=== PATIENT | male | born 1975 | race Caucasian/White ===

== ENCOUNTER 2019-05-16 16:01 | Outpatient (REF) | payer SELFPAY ==
[2019-05-16 13:11] LABS: HCT 48.1 % (40.0-50.0); HGB 16.2 g/dL (13.5-17.5)
[2019-05-16 13:24] LABS: ALT 79 U/L (16-63); AST 28 U/L (15-37); Albumin 4.4 g/dL (3.4-5.0); Alkaline Phosphatase 91 U/L (46-116); Anion Gap 12.2 mmol/L (3-11); BUN 21 mg/dL (7-18); Bilirubin, Total 0.3 mg/dL (0.2-1.0); CO2 23.8 mmol/L (21.0-32.0); CREATININE 1.07 mg/dL (0.70-1.30); Calcium 9.5 mg/dL (8.5-10.1); Calculated LDL 174 mg/dL; Chloride 107 mmol/L (98-107); Cholesterol 268 mg/dL (50-200); Glucose 129 mg/dL (70-100); HDL Cholesterol 37 mg/dL (40-60); Potassium 4.6 mmol/L (3.5-5.1); Sodium 143 mmol/L (136-145); Total Protein 7.5 g/dL (6.4-8.2); Triglyceride 287 mg/dL (30-150)
== END 2019-05-16 16:21 ==
LOC: NCHCN 16:01
PROVIDERS: PCP Specialist/Technologist Athletic Trainer; Visit Provider Specialist/Technologist Athletic Trainer
DX: K62.5 Hemorrhage of anus and rectum (principal); Z00.00 Encounter for general adult medical examination without abnormal findings; Z13.220 Encounter for screening for lipoid disorders
CPT/HCPCS: 80053; 80061; 85014; 85018

== ENCOUNTER 2019-09-23 11:21 | Outpatient (CLI) | payer OTHER, SELFPAY ==
[2019-09-25 14:08] LABS: SARS-CoV-2 RNA Undetected (Undetected); SARS-CoV-2 Specimen Source Nasopharynx
== END 2019-09-23 11:41 ==
PROVIDERS: PCP Specialist/Technologist Athletic Trainer; Visit Provider Specialist/Technologist Athletic Trainer
DX: Z20.828 Contact with and (suspected) exposure to other viral communicable diseases (principal); Z11.59 Encounter for screening for other viral diseases; B34.9 Viral infection, unspecified
CPT/HCPCS: 87449; U0003

== ENCOUNTER 2020-09-28 10:22 | Outpatient (REF) | payer OTHER, SELFPAY ==
[2020-09-28 13:52] LABS: ALT 67 U/L (16-63); AST 27 U/L (15-37); Anion Gap 8.4 mmol/L (3-11); BUN 22 mg/dL (7-18); CO2 25.6 mmol/L (21.0-32.0); Calcium 9.5 mg/dL (8.5-10.1); Calculated LDL 167 mg/dL (<100); Chloride 106 mmol/L (98-107); Cholesterol 264 mg/dL (<200); Glucose 132 mg/dL (74-106); HDL Cholesterol 43 mg/dL (40-60); Potassium 4.2 mmol/L (3.5-5.1); Sodium 140 mmol/L (136-145); Triglyceride 271 mg/dL (<150)
== END 2020-09-28 10:23 | disposition home or self-care (01) ==
LOC: NCHCN 10:22
PROVIDERS: PCP Nurse Practitioner Family; Visit Provider Nurse Practitioner Family
DX: Z00.00 Encounter for general adult medical examination without abnormal findings (principal); E78.5 Hyperlipidemia, unspecified; R73.03 Prediabetes
CPT/HCPCS: 80048; 80061; 84450; 84460

== ENCOUNTER 2021-01-26 10:30 | Emergency (ER) | payer OTHER, SELFPAY ==
[2021-01-26 10:35] VITALS: BP 157/92; PULSE 101; RESP 18; TEMP 36.5; O2SAT 95
[2021-01-26 10:40] VITALS: RESP 18
--- NOTE | 2021-01-26 11:00 | DI.RAD_ITS ---
Exam(s) XR SOFT TISSUE NECK EXAM: XR SOFT TISSUE NECK CLINICAL HISTORY: neck pain, r/o acute process TECHNIQUE: COMPARISON: No exams were available for comparison FINDINGS: Two views were obtained. There is a mild torticollis to the right. There is disc space narrowing an d prominent anterior osteophytes at C6-7 level. No prevertebral soft tissue swelling seen. Unremark able appearance of the tracheal laryngeal air shadow. IMPRESSION: Negative soft tissue examination of the neck. RADIATION DOSE DELIVERED: Total DLP
--- NOTE | 2021-01-26 11:00 | DI.RAD_ITS ---
Exam(s) XR CHEST 2V PA LATERAL EXAM: XR CHEST 2V PA LATERAL CLINICAL HISTORY: cough, chest congestion, r/o acute disease TECHNIQUE: 2D digital imaging was performed. COMPARISON: No exams were available for comparison FINDINGS: The heart is not enlarged. The lungs are clear and well expanded. No pleural effusion seen. Mediastin al contours appear intact. IMPRESSION: Normal chest. RADIATION DOSE DELIVERED: Total DLP
--- NOTE | 2021-01-26 11:11 | W.ED.GENAD ---
Discharge Plan Disposition Patient Disposition: HOME Condition: Improving Discharge Details Clinical Impression: Acute cervical myofascial strain, Hiccups, Cough Primary Care Provider: Yudith Elkins ED Provider: Zeynep Majano Home Meds and New Rx's Prescriptions: New methocarbamol 500 mg tablet 500 mg PO Q6H PRN (Reason: muscle spasm) Qty: 14 RF: 0 Continued lisinopril 10 mg Tablet 10 mg PO DAILY RF: 0 Discharge Instructions Instructions: Cervical Strain (ED), Acute Cough (ED) Additional Instructions: Alternate ice and heat to the affected area(s) several times daily for 20 minutes at a time. Alternate tylenol and motrin as needed and directed for pain. Take the methocarbamol muscle relaxer as needed and directed for pain. Follow-up with your primary care doctor in 1 week. Follow-up with general surgery for reevaluation and for consideration of upper endoscopy if your hiccups persist or worsen. Return to the emergency department with any worsening or new concerning symptoms. Referrals: Nadine San DO [OSTEOPATHIC DOCTOR] - Discharge Data Discharge Physician: Zeynep Majano Medical Decision Making 45-year-old male presents with neck pain since this morning that is worse with head movement, 2 episodes of coughing up yellow and brown sputum this morning and hiccups all day yesterday. Vitals within normal limits. Patient appears comfortable and nontoxic. His neck pain is tender to palpation paraspinal and is reproducible with head movement so this appears musculoskeletal. He has no report of fever, sore throat with normal ENT exam and no meningeal signs so history and presentation does not appear consistent with meningitis or strep pharyngitis. He also denies any shortness of breath, persistent cough or chest pain and has normal vital signs and history and presentation does not appear consistent with pneumonia. Will obtain screening labs, neck and chest x-ray due to his complaint of hiccups all day yesterday however I am not concerned of an acute infectious or obvious neoplastic process without report of weight loss or recent illness. Patient drove himself to the ED and would prefer to drive home. Will place an IV, give a dose of Toradol, Decadron IV and fluids and reassess. Labs reviewed. White blood cell count 12. Normal electrolytes. Soft tissue neck x-ray and chest x-ray negative for acute findings. Pt reassessed and he feels much better and feels good to go home. We will send with a prescription for muscle relaxers. Advised to alternate ice and heat and take NSAIDs. Will give surgery follow-up information if needed if hiccups return and persist for evaluation and consideration for upper endoscopy. Usual and customary return precautions given prior to discharge. Medical Records Medical records reviewed: Yes I reviewed the patient's medical records. Imaging Data Radiologic Study: Radiologist's impression: XR Soft Tissue Neck Exam date and time: 01/26/2021 11:09 AM Age: 45 years old Clinical indication: Patient HX: Neck pain, R/O acute process, hiccups, sore throat TECHNIQUE: Imaging protocol: XR of the soft tissues of the neck. COMPARISON: No relevant prior studies available. FINDINGS: Airway: No significant airway narrowing is identified. Soft tissues: Prevertebral soft tissues are unremarkable. Bones/joints: There is straightening, mild reversal of the cervical lordosis. There are findings consistent with cervical spondylosis, degenerative disc disease most prominent at C6-C7. No acute bony abnormality is identified by plain film exam. Other findings: Lung apices are clear IMPRESSION: No acute findings by plain film exam XR Chest Exam date and time: 01/26/2021 11:09 AM Age: 45 years old Clinical indication: Patient HX: Cough, chest congestion, R/O acute disease, TECHNIQUE: Imaging protocol: XR of the chest. Views: 2 views. COMPARISON: No relevant prior studies available. FINDINGS: Lungs: Unremarkable. No consolidation. Pleural spaces: Unremarkable. No pleural effusion. No pneumothorax. Heart/Mediastinum: Unremarkable. No cardiomegaly. Bones/joints: Unremarkable. IMPRESSION: No acute findings. Lab Data Lab results reviewed: Yes I reviewed the patient's lab results. Labs: 01/26/21 11:16 Sputum Sputum Culture - Pending 01/26/21 11:16 Sputum Gram Stain - Final Laboratory Tests Range/Units 01/26/21 01/26/21 11:20 11:20 WBC (4.4-10.8) 10^3/uL 12.70 H RBC (4.36-5.78) 10^6/uL 5.11 Hgb (13.5-17.5) g/dL 15.8 Hct (40.0-50.0) % 46.8 MCV (80-95) fL 91.6 MCH (27.0-33.0) pg 30.9 MCHC (32.0-36.0) % 33.8 RDW (11.8-14.1) % 12.0 Plt Count (130-400) 10^3/uL 215 MPV (8.0-11.0) fL 10.0 Immature Gran % 0.3 Neutrophils % 77.8 Lymphocytes % 12.6 Monocytes % 8.3 Eosinophils % 0.5 Basophils % 0.5 Nucleated RBC % % 0 Absolute Neutrophils (1.2-6.7) 10^3/uL 9.88 H Absolute Lymphocytes (1.2-3.4) 10^3/uL 1.60 Absolute Monocytes (0.1-0.8) 10^3/uL 1.05 H Absolute Eosinophils (0.0-0.7) 10^3/uL 0.06 Absolute Basophils (0.0-0.2) 10^3/uL 0.06 Sodium (136-145) mmol/L 141 Potassium (3.5-5.1) mmol/L 4.1 Chloride (98-107) mmol/L 104 Carbon Dioxide (21.0-32.0) mmol/L 26.1 Anion Gap (3-11) mmol/L 10.9 BUN (7-18) mg/dL 16 Creatinine (0.70-1.30) mg/dL 0.9 Estimated GFR/1.73 m2 (mL/min/1.73m2) >= 60.00 Glucose (74-106) mg/dL 139 H Calcium (8.5-10.1) mg/dL 9.0 Total Bilirubin (0.2-1.0) mg/dL 0.5 AST (15-37) U/L 34 ALT (16-63) U/L 83 H Alkaline Phosphatase (46-116) U/L 79 Total Protein (6.4-8.2) g/dL 7.6 Albumin (3.4-5.0) g/dL 4.2 Lipase (73-393) U/L 67 HPI General Mode of arrival: ambulatory. Date/Time Provider Initiated Documentation: 01/26/21 10:41. Limitations to Documentation: no limitations. Information obtained by: patient. HPI Narrative: Patient is a 45-year-old male who presents to the ED with a complaint of hiccups all day yesterday with 2 episodes of coughing up yellow and brown sputum this morning and diffuse neck pain that is worse with head movement today. Patient states his main complaint now is neck pain. Patient has not taken any medication for pain. He states the neck pain is worse with movement of his head. He denies any pain within his throat or sore throat or pain with swallowing. Patient states since waking up yesterday morning he had the hiccups all throughout the day. He states that he went to sleep for a few hours and awoke at 3 AM with needing to cough up a large amount of yellow and brown sputum. He states he was able to sleep for a few hours and then awoke and coughed up another large amount of yellow-brown sputum. He states since getting out of bed this morning he noted neck pain. He states he did have the hiccups again this morning after awakening but states this is now improved. He denies any fever, persistent cough at this time, shortness of breath, abdominal pain, vomiting, diarrhea, recent weight loss, new medications, recent alcohol or new food. Related Data Home Medications Medication Instructions Recorded Confirmed lisinopril 10 mg PO DAILY 01/26/21 01/26/21 methocarbamol 500 mg PO Q6H PRN #14 tab 01/26/21 Previous Rx's Medication Instructions Recorded methocarbamol 500 mg PO Q6H PRN #14 tab 01/26/21 Allergies Allergy/AdvReac Type Severity Reaction Status Date / Time shrimp Allergy Severe Anaphylaxis Unverified 01/26/21 10:38 General Stated Complaint: GenMedical MAHI: 3 Review of Systems All systems reviewed & are unremarkable except as noted in HPI and below Constitutional Constitutional: Reports as per HPI, Denies chills and Denies fever(s) Eyes Eyes: Denies blurry vision ENT Ears, Nose, Mouth, and Throat: Denies dizziness, Reports neck pain, Denies sore throat and Denies throat swelling Cardiovascular Cardiovascular: Denies chest pain and Denies dyspnea Respiratory Respiratory: Reports cough and Denies dyspnea Gastrointestinal Gastrointestinal: Denies abdominal pain, Denies diarrhea and Denies vomiting Genitourinary Genitourinary: Denies hematuria and Denies dysuria Musculoskeletal Musculoskeletal: Denies back pain, Reports neck pain and Denies numbness Integumentary/Breasts Skin/Breast: Denies lesions and Denies rash Neurologic Neurologic: Denies dizziness, Denies localized weakness and Denies numbness Allergic/Immunologic Allergic/Immunologic: Denies throat swelling [facility] Medical History (Updated 01/26/21 @ 13:17 by Zeynep Majano DO) HTN (hypertension) Surgical History (Updated 01/26/21 @ 11:13 by Zeynep Majano DO) History of lumbar fusion Social History Smoking/Tobacco Use Status: Never Smoking risk assessment performed?: Yes Alcohol Intake: current Alcohol Intake frequency: 3 or more drinks per day Drug use: Never Substance use type: does not use Do you feel safe at home: Yes Do you feel safe in your relationship?: Yes Exam Const General: cooperative and no acute distress HENMT Head: normal to inspection Ears: hearing grossly normal bilaterally, external ears normal and TM's normal bilaterally Face and sinus: normal facial exam Mouth: oral mucosae normal Throat: posterior oropharynx normal Eyes General: appearance normal, both eyes and all related structures EOM: EOM intact bilaterally Neck Neck: normal visual inspection, no meningeal signs, trachea midline, supple, no anterior neck swelling, no tracheal deviation and No submandibular swelling Lymphatic: no lymphadenopathy noted Chest Chest: normal inspection of the chest and no tenderness Resp Effort & Inspection: normal respiratory effort and able to speak in complete sentences Auscultation: clear to auscultation bilaterally Cardio Rate: regular rate Rhythm: regular rhythm GI Inspection: normal to inspection Palpation: soft, not firm, not rigid and nontender Auscultation: normal bowel sounds Back/Spine/Pelvis Cervical Spine: cervical muscular tenderness and pain with cervical ROM (most with L and R head rotation) Skin General skin exam: no rashes or lesions noted Neuro General: patient alert, patient awake and patient oriented x3 Cognition: normal cognition Speech: speech normal Motor: muscle tone normal throughout and strength 5/5 throughout Sensory Exam: no sensory deficits noted Extrem General: normal to inspection, full ROM, capillary refill normal, no calf tenderness bilaterally and no edema Other: Bilateral radial and ulnar pulses intact. Psych Appearance: grossly normal Mental Status: mental status grossly normal Speech and Movement: speech and movement normal Affect: normal affect Course Vital Signs Vital signs: Vital Signs Temperature 97.7 F 01/26/21 10:35 Pulse 101 H 01/26/21 10:35 Respiratory Rate 18 01/26/21 10:35 Blood Pressure 157/92 H 01/26/21 10:35 Pulse Oximetry 95 01/26/21 10:35 Temperature 97.7 F 01/26/21 10:35 Temperature Source Temporal Artery Scan 01/26/21 10:35 Pulse 101 H 01/26/21 10:35 Respiratory Rate 18 01/26/21 10:40 Respiratory Effort Non-Labored 01/26/21 10:40 Respiratory Depth Normal 01/26/21 10:40 Respiratory Pattern Normal 01/26/21 10:40 Blood Pressure 157/92 H 01/26/21 10:35 Blood Pressure Position Sitting 01/26/21 10:35 Pulse Oximetry 95 01/26/21 10:35 Oxygen Delivery Method Room Air 01/26/21 10:35 Oxygen Flow Rate 0 01/26/21 10:35 Pain Level 9 01/26/21 10:35
[2021-01-26 11:25] LABS: Abs Immature Grans 0.04 10^3/uL (0.0-0.06); Absolute Basophil Count 0.06 10^3/uL (0.0-0.2); Absolute Eosinophil Count 0.06 10^3/uL (0.0-0.7); Absolute Monocyte Count 1.05 10^3/uL (0.1-0.8); Basophils % 0.5; Eosinophils % 0.5; HCT 46.8 % (40.0-50.0); HGB 15.8 g/dL (13.5-17.5); Immature Grans % 0.3; Lymphocytes % 12.6; MCH 30.9 pg (27.0-33.0); MCHC 33.8 % (32.0-36.0); MCV 91.6 fL (80-95); Monocytes % 8.3; Neutrophils % 77.8; Nucleated RBC 0 %; Platelet Count 215 10^3/uL (130-400); RBC 5.11 10^6/uL (4.36-5.78); RDW-SD 40.8 fL
[2021-01-26 11:27] LABS: Absolute Neutrophil Count 9.88 10^3/uL (1.2-6.7)
[2021-01-26 11:39] LABS: ALT 83 U/L (16-63); AST 34 U/L (15-37); Albumin 4.2 g/dL (3.4-5.0); Alkaline Phosphatase 79 U/L (46-116); Anion Gap 10.9 mmol/L (3-11); BUN 16 mg/dL (7-18); Bilirubin, Total 0.5 mg/dL (0.2-1.0); CO2 26.1 mmol/L (21.0-32.0); CREATININE 0.9 mg/dL (0.70-1.30); Chloride 104 mmol/L (98-107); Glucose 139 mg/dL (74-106); Lipase 67 U/L (73-393); Potassium 4.1 mmol/L (3.5-5.1); Sodium 141 mmol/L (136-145); Total Protein 7.6 g/dL (6.4-8.2)
[2021-01-26] MEDS: Normal Saline 1,000 ML 1000 ML IV (11:42)
[2021-01-26] MEDS: Ketorolac 30 MG/ML VIAL IVP (11:43)
[2021-01-26] MEDS: Dexamethasone 10 MG/ML VIAL IVP (11:43)
[2021-01-26 11:46] VITALS: BP 134/77; PULSE 87; RESP 18; O2SAT 95
--- NOTE | 2021-01-26 13:03 | DI.VRAD_ITS ---
PROCEDURE INFORMATION: Exam: XR Chest Exam date and time: 01/26/2021 11:09 AM Age: 45 years old Clinical indication: Patient HX: Cough, chest congestion, R/O acute disease, TECHNIQUE: Imaging protocol: XR of the chest. Views: 2 views. COMPARISON: No relevant prior studies available. FINDINGS: Lungs: Unremarkable. No consolidation. Pleural spaces: Unremarkable. No pleural effusion. No pneumothorax. Heart/Mediastinum: Unremarkable. No cardiomegaly. Bones/joints: Unremarkable. IMPRESSION: No acute findings. Dictated and Authenticated by: Denise Cardenas MD. Ordering:TOPHER Adhikari MD
--- NOTE | 2021-01-26 13:05 | DI.VRAD_ITS ---
PROCEDURE INFORMATION: Exam: XR Soft Tissue Neck Exam date and time: 01/26/2021 11:09 AM Age: 45 years old Clinical indication: Patient HX: Neck pain, R/O acute process, hiccups, sore throat TECHNIQUE: Imaging protocol: XR of the soft tissues of the neck. COMPARISON: No relevant prior studies available. FINDINGS: Airway: No significant airway narrowing is identified. Soft tissues: Prevertebral soft tissues are unremarkable. Bones/joints: There is straightening, mild reversal of the cervical lordosis. There are findings consistent with cervical spondylosis, degenerative disc disease most prominent at C6-C7. No acute bony abnormality is identified by plain film exam. Other findings: Lung apices are clear IMPRESSION: No acute findings by plain film exam Dictated and Authenticated by: Denise Cardenas MD. Ordering:TOPHER Adhikari MD
[2021-01-26 13:51] VITALS: BP 140/72; PULSE 80; RESP 18; TEMP 36.7; O2SAT 95
== END 2021-01-26 14:13 | disposition home or self-care (01) ==
PROVIDERS: Emergency Provider Physician Assistant; PCP Nurse Practitioner Family
DX: S16.1XXA Strain of muscle, fascia and tendon at neck level, initial encounter (principal); X58.XXXA Exposure to other specified factors, initial encounter; R06.6 Hiccough; R05 Cough
CPT/HCPCS: 36415; 80053; 83690; 96361; 96374; 96375; 99284; 70360; 71046; 85025; 87070; 87205; 99285; J1100; J1885

== ENCOUNTER 2023-03-06 21:21 | Outpatient (REF) | payer OTHER, SELFPAY ==
[2023-03-06 21:43] LABS: HCT 46.5 % (40.0-50.0); HGB 15.6 g/dL (13.5-17.5); MCH 30.8 pg (27.0-33.0); MCHC 33.5 % (32.0-36.0); MCV 92 fL (80-95); MPV 10.5 fL (8.0-11.0); Platelet Count 280 10^3/uL (130-400); RBC 5.07 10^6/uL (4.36-5.78); RDW 12.1 % (11.8-14.1); WBC 8.13 10^3/uL (4.4-10.8)
[2023-03-06 22:03] LABS: ALT 39 U/L (16-63); AST 14 U/L (15-37); Albumin 4.2 g/dL (3.4-5.0); Alkaline Phosphatase 89 U/L (46-116); Anion Gap 11.1 mmol/L (3-11); BUN 22 mg/dL (7-18); Bilirubin, Total 0.4 mg/dL (0.2-1.0); CO2 25.9 mmol/L (21.0-32.0); Calcium 9.4 mg/dL (8.5-10.1); Chloride 103 mmol/L (98-107); Glucose 212 mg/dL (74-106); Potassium 4.1 mmol/L (3.5-5.1); Sodium 140 mmol/L (136-145); Total Protein 7.6 g/dL (6.4-8.2)
== END 2023-03-06 21:22 | disposition home or self-care (01) ==
LOC: NCHCN 21:21
PROVIDERS: PCP Nurse Practitioner Family; Visit Provider Nurse Practitioner Family
DX: Z00.00 Encounter for general adult medical examination without abnormal findings (principal)
CPT/HCPCS: 80053; 85027

== ENCOUNTER 2023-06-12 20:12 | Outpatient (REF) | payer OTHER, SELFPAY ==
[2023-06-12 14:48] LABS: Calculated LDL 161 mg/dL (<100); Cholesterol 254 mg/dL (<200); HDL Cholesterol 47 mg/dL (40-60); Triglyceride 231 mg/dL (<150)
== END 2023-06-12 20:13 | disposition home or self-care (01) ==
LOC: NCHCN 20:12
PROVIDERS: PCP Nurse Practitioner Family; Visit Provider Nurse Practitioner Family
DX: E78.5 Hyperlipidemia, unspecified (principal)
CPT/HCPCS: 80061

== ENCOUNTER 2024-04-22 22:53 | Outpatient (REF) | payer SELFPAY ==
[2024-04-22 16:07] LABS: ALT 41 U/L (16-63); AST 17 U/L (15-37); Albumin 4.2 g/dL (3.4-5.0); Alkaline Phosphatase 91 U/L (46-116); Anion Gap 11.3 mmol/L (3-11); BUN 19 mg/dL (7-18); Bilirubin, Total 0.43 mg/dL (0.2-1.0); CO2 25.7 mmol/L (21.0-32.0); Calcium 9.4 mg/dL (8.5-10.1); Calculated LDL 154 mg/dL (<100); Chloride 106 mmol/L (98-107); Cholesterol 231 mg/dL (<200); Estimated GFR 93.42 (mL/min/1.73m2); Glucose 158 mg/dL (74-106); HDL Cholesterol 47 mg/dL (40-60); Potassium 4.4 mmol/L (3.5-5.1); Sodium 143 mmol/L (136-145); Total Protein 7.2 g/dL (6.4-8.2); Triglyceride 154 mg/dL (<150)
[2024-04-22 16:08] LABS: COMMENT (LAB VIEW ONLY) 182.83 mg/dL; Microalb ug/mg Crea 15.5 ug/mg Cr
--- OUTSIDE RECORDS SUMMARY | 2024-04-22 22:55 | XMS_ITS | Encounter Summary ---
Author Organization [facility] Address [address] [place] [address] Care Team Providers Care First Press Operator Name Role Phone Unavailable Primary Care Provider Unavailabl e Encounter Details Date Type Department Care Team (Latest Contact Info) Description 04/09/2023 Transcribe Orders [facility] [place] [address] [place] [address] Yudith Elkins FNP [address] [place] [id number] Male infertility, unspecified (Primary Dx) Social History Tobacco Use Types Packs/Day Years Used Date Smoking Tobacco: Never Assessed Sex and Gender Information Value Date Recorded Sex Assigned at Not on file Gender Identity Not on file Sexual Orientation Not on file documented as of this encounter Plan of Treatment Not on file documented as of this encounter Visit Diagnoses Diagnosis Male infertility, unspecified- Primary documented in this encounter
--- OUTSIDE RECORDS SUMMARY | 2024-04-22 22:55 | XMS_ITS | Referral Summary ---
Author Organization [facility] Address [address] [place] [address] Care Team Providers Care Truck Driving Instructor Name Role Phone Unavailable Primary Care Provider Unavailabl e Social History Tobacco Use Types Packs/Day Years Used Date Smoking Tobacco: Never Assessed Sex and Gender Information Value Date Recorded Sex Assigned at Not on file Gender Identity Not on file Sexual Orientation Not on file Plan of [place] [address] Ariel Kirk Personal/Family Self [address] [place] [address], [place] [address] Ariel Kirk Personal/Family Self [address] [place] [address], [place] [address]
--- OUTSIDE RECORDS SUMMARY | 2024-04-22 22:55 | XMS_ITS | Clinical Summary ---
Author Organization [facility] Address [address] [place] [address] Care Team Providers Care Mmi Teacher Name Role Phone Unavailable Primary Care Provider Unavailabl e Social History Tobacco Use Types Packs/Day Years Used Date Smoking Tobacco: Never Assessed Sex and Gender Information Value Date Recorded Sex Assigned at Not on file Gender Identity Not on file Sexual Orientation Not on file Plan of Treatment Health Maintenance Due Date Last Done Comments Hepatitis C Screen 1975 Hepatitis B Vaccine (1 of 3 - 19+ 3-dose series) 02/08 COVID-19 Vaccine ( season) 2024 Ariel Kirk Personal/Family Self [address] [place] [id number] Ariel Kirk Personal/Family Self [address] [place] [id number]
== END 2024-04-22 22:54 | disposition home or self-care (01) ==
LOC: NCHCN 22:53
PROVIDERS: PCP Nurse Practitioner Family; Visit Provider Nurse Practitioner Family
DX: I10 Essential (primary) hypertension (principal); E78.5 Hyperlipidemia, unspecified
CPT/HCPCS: 80053; 80061; 82043; 82570

== ENCOUNTER 2025-04-07 14:25 | Outpatient (REF) | payer OTHER, SELFPAY ==
[2025-04-07 21:22] LABS: ALT 46 U/L (16-63); AST 17 U/L (15-37); Albumin 4.2 g/dL (3.4-5.0); Alkaline Phosphatase 124 U/L (46-116); Anion Gap 13.4 mmol/L (3-11); BUN 24 mg/dL (7-18); Bilirubin, Total 0.4 mg/dL (0.2-1.0); CO2 24.6 mmol/L (21.0-32.0); Calcium 9.6 mg/dL (8.5-10.1); Chloride 103 mmol/L (98-107); Cholesterol 242 mg/dL (<200); Estimated GFR 92.84 (mL/min/1.73m2); Glucose 216 mg/dL (74-106); HDL Cholesterol 39 mg/dL (>or=40); Potassium 4.3 mmol/L (3.5-5.1); Sodium 141 mmol/L (136-145); Total Protein 7.5 g/dL (6.4-8.2); Triglyceride 445 mg/dL (<150)
[2025-04-07 21:47] LABS: LDL CHOLESTEROL 140 mg/dL (<100)
== END 2025-04-07 14:26 | disposition home or self-care (01) ==
LOC: NCHCN 14:25
PROVIDERS: PCP Nurse Practitioner Family; Visit Provider Nurse Practitioner Family
DX: E11.9 Type 2 diabetes mellitus without complications (principal); E78.5 Hyperlipidemia, unspecified
CPT/HCPCS: 80053; 80061; 83721